=== PATIENT | male | born 1960 | race Caucasian/White ===

== ENCOUNTER 2023-03-21 15:25 | Emergency (ER) | payer BC ==
[2023-03-21] MEDS ORDERED: Sodium Chloride 0.9% 20 ML SDV IV PRN (16:18)
[2023-03-21] MEDS ORDERED: Sodium Chloride 0.9% 10 ML Syringe FLUSH PRN (16:18)
[2023-03-21] MEDS ORDERED: Sodium Chloride 0.9% 2.5 ML Syringe FLUSH PRN (16:18)
[2023-03-21 16:30] LABS: BASOPHILS ABSOLUTE AUTO 0.03 K/uL (0.00-0.20); BASOPHILS PERCENT AUTO 0.3 % (0.0-1.0); EOSINOPHILS ABSOLUTE AUTO 0.14 K/uL (0.00-0.45); EOSINOPHILS PERCENT AUTO 1.2 % (0.0-6.0); HEMATOCRIT 40.7 % (42.0-52.0); HEMOGLOBIN 13.8 g/dL (14.0-18.0); IMMATURE GRAN ABSOLUTE AUTO 0.01 K/uL (0.00-0.05); IMMATURE GRAN PERCENT AUTO 0.1 % (0.0-0.4); LYMPHOCYTES ABSOLUTE AUTO 2.78 K/uL (1.00-4.80); LYMPHOCYTES PERCENT AUTO 23.5 % (24.0-44.0); MEAN CORPUSCULAR HEMOGLOBIN 30.5 pg (28.0-32.0); MEAN CORPUSCULAR HGB CONC 33.9 g/dL (32.0-36.0); MEAN PLATELET VOLUME 11.1 fL (9.4-12.4); MONOCYTES ABSOLUTE AUTO 1.27 K/uL (0.00-0.80); MONOCYTES PERCENT AUTO 10.7 % (0.0-8.0); NEUTROPHILS ABSOLUTE AUTO 7.59 K/uL (1.80-7.70); NEUTROPHILS PERCENT AUTO 64.2 % (41.0-71.0); PLATELET COUNT,PLT 278 K/uL (150-400); RED BLOOD CELL COUNT 4.52 M/uL (4.52-5.90); WHITE BLOOD CELL COUNT,WBC 11.82 K/uL (3.9-11.3)
[2023-03-21] MEDS ORDERED: Iopamidol 755 Mg/ML 100 ML Bottle IVPUSH STA (16:52)
[2023-03-21 17:15] LABS: INR 1.13 (0.86-1.11); PTT,PARTIAL THROMBOPLSTIN TIME 34.7 SEC (23.9-30.7)
[2023-03-21 17:26] LABS: A/G RATIO 0.7 (0.9-1.6); ALBUMIN 2.6 g/dL (3.4-5.0); BILIRUBIN TOTAL 0.4 mg/dL (0.2-1.0); CALCIUM 8.7 mg/dL (8.5-10.1); CARBON DIOXIDE,CO2 25.3 mmol/L (21.0-32.0); CREATININE 0.9 mg/dL (0.8-1.3); EST CRCL DRUG DOSING (CG) 80.22 mL/min; POTASSIUM,K 4.3 mmol/L (3.5-5.1); PROTEIN TOTAL,TP 6.3 g/dL (6.4-8.2)
[2023-03-21] MEDS ORDERED: Aspirin 325 MG Tab PO ONE (17:45)
== END 2023-03-21 20:01 ==
LOC: MW.ED 15:25
DX: I21.4 Non-ST elevation (NSTEMI) myocardial infarction (principal); G45.9 Transient cerebral ischemic attack, unspecified; E11.9 Type 2 diabetes mellitus without complications; Z79.84 Long term (current) use of oral hypoglycemic drugs; Z79.899 Other long term (current) drug therapy
CPT/HCPCS: 36415; 70450; 70496; 70498; 71045; 80053; 82947; 84484; 85025; 85610; 85730; 93005; 99291; A9270; J3490; Q9967; 93010